=== PATIENT | male | born 1970 | race Caucasian/White ===

== ENCOUNTER 2017-03-14 10:34 | Emergency (ER) | payer OTHER ==
[2017-03-14 10:38] VITALS: BP 158/96; PULSE 58; RESP 18; TEMP 98; O2SAT 97
--- NOTE | 2017-03-14 10:58 | PD ---
HPI Chief Complaint: Complaint Time Seen by Provider: 10:46 Travel History International Travel<30 days: No Contact w/Intl Traveler<30days: No Traveled to known affect area: No History of Present Illness HPI The patient is a 46-year-old male who presents emergency department for possible exposure to STI. The patient states he recently found out his ex- girlfriend has a history of IVDA. The patient thinks he may been exposed and STI including herpes and possibly hepatitis C. The patient denies any dysuria, frequency, urgency, or genitourinary rash. The patient denies any personal history of IVDA, but is worried that he may have been exposed to hepatitis C. The patient is currently asymptomatic, no current alleviating or exacerbating factors. [facility] Past Medical History Medical History: Denies Significant Hx Past Surgical History Other Surgery: Yes (HAND SURGERY) Social History Alcohol Use: No Tobacco Use: Yes Substance Use: Yes (MARIJUANA DAILY) Allergies-Medications (Allergen,Severity, Reaction): Coded Allergies: Ants (Verified Allergy, Unknown, 03/14/17) Uncoded Allergies: VENOM (Allergy, Unknown, 03/14/17) Reported Meds & Prescriptions Reported Meds & Active Scripts Active No Active Prescriptions or Reported Medications Review of Systems Except as stated in HPI: all other systems reviewed are Neg Gastrointestinal: No: Abdominal Pain Genitourinary: No: Dysuria Skin: No Rash Physical Exam Narrative GENERAL: Awake, alert, pleasant 46-year-old male who appears his stated age and is in no acute respiratory distress. SKIN: Focused skin assessment warm/dry. HEAD: Atraumatic. Normocephalic. EYES: Pupils equal and round. No scleral icterus. No injection or drainage. ENT: No nasal bleeding or discharge. Mucous membranes pink and moist. NECK: Trachea midline. No JVD. GASTROINTESTINAL: Abdomen soft, non-tender, nondistended. Hepatic and splenic margins not palpable. Genitourinary: No visible rash. Circumcised phallus. Both testicles are descended. MUSCULOSKELETAL: No obvious deformities. No clubbing. No cyanosis. No edema. NEUROLOGICAL: Awake and alert. No obvious cranial nerve deficits. Motor grossly within normal limits. Normal speech. PSYCHIATRIC: Appropriate mood and affect; insight and judgment normal. Data Data Last Documented VS Vital Signs Date Time Temp Pulse Resp B/P Pulse Ox O2 Delivery O2 Flow Rate FiO2 03/14/17 10:38 98.0 58 18 158/96 97 Orders Azithromycin Powd Pack (Zithromax Powd P (03/14/17 11:00) Ceftriaxone Inj (Rocephin Inj) (03/14/17 11:00) Lidocaine 1% Inj (50 Ml) (Xylocaine 1% I (03/14/17 11:00) MDM Medical Decision Making Medical Screen Exam Complete: Yes Emergency Medical Condition: Yes Medical Record Reviewed: Yes Differential Diagnosis Differential diagnoses includes STI exposure, hepatitis C exposure, genital herpes exposure. Narrative Course I had a discussion with the patient regarding testing for gonorrhea/chlamydia versus treatment, the patient would prefer treatment. The patient is advised to follow-up with the [facility] for outpatient hepatitis C testing. Patient is stable for outpatient follow-up. Diagnosis Primary Impression: Exposure to herpes Patient Instructions: General Instructions Additional Instructions: Follow-up with the [facility]. Return if symptoms worsen or progress. Med/Other Pt SpecificInfo: No Change to Meds Scripts No Active Prescriptions or Reported Meds Disposition: 01 DISCHARGE HOME Condition: Stable Ovidio Ragland MD Mar 14, 2017 10:58
[2017-03-14] MEDS ORDERED: AZITHROMYCIN PWD FOR SUSP 1 GM PACKET PO ONE (11:00)
[2017-03-14] MEDS ORDERED: cefTRIAXone 250 MG VIAL IM ONE (11:00)
[2017-03-14] MEDS ORDERED: LIDOCAINE HCL 1% 50 ML VIAL XX ONE (11:00)
== END 2017-03-14 11:35 | disposition home or self-care (01) ==
LOC: PHED 10:34
DX: Z20.89 Contact with and (suspected) exposure to other communicable diseases (principal); Z72.0 Tobacco use
CPT/HCPCS: 96372; 99284; J0696